=== PATIENT | male | born 1965 | race Caucasian/White ===

== ENCOUNTER 2023-07-21 17:38 | Emergency (ER) | payer OTHER, SELFPAY ==
[2023-07-21] VITALS (9 sets, daily range): BP systolic 130–166; BP diastolic 84–94; PULSE 60–64; RESP 10–20; TEMP 36.1; O2SAT 96–99; BMI 29.8
--- NOTE | 2023-07-21 17:44 | DI.RAD.S_ITS ---
PROCEDURE: XR CHEST 1V INDICATIONS: chest pain TECHNIQUE: One view of the chest was acquired. COMPARISON: None. FINDINGS: Surgical changes and devices: Midline sternotomy wire and heart valve prosthesis in place Lungs and pleura: Lungs are clear. No pleural effusions or pneumothorax. Mediastinum: Mediastinal contours appear normal. Heart size is normal. Bones and chest wall: No suspicious bony lesions. Overlying soft tissues appear unremarkable. IMPRESSION: No acute cardiopulmonary abnormality is seen. Dictated by: Ashley Pacheco M.D. on 07/21/2023 at 19:41 Approved by: Ashley Pacheco M.D. on 07/21/2023 at 19:41
--- NOTE | 2023-07-21 18:02 | PC.NURSE ---
Patient reports his watch has been stating he has been in afib about 2%of his day. States he started feeling off Like he had a bad run of afib Patient reports he goes in and out of afib, on coumadin. Denies chest pain at present but does report some mild SOB.
[2023-07-21 18:09] LABS: Add Manual Diff / Slide Review NO; Basophils Absolute Auto 100 /uL (0-100); Basophils Percent Auto 0.7 % (0-2); Eosinophils Absolute Auto 100 /uL (0-450); Eosinophils Percent Auto 0.9 % (2-4); Hemoglobin 15.2 g/dL (13.5-17.5); Lymphocytes Absolute Auto 2600 /uL (1100-4500); Lymphocytes Percent Auto 28.3 % (25-40); Mean Corpuscular HGB Conc 34.7 % (30-36); Mean Corpuscular Hemoglobin 30.5 PG (26-34); Monocytes Absolute Auto 800 /uL (0-900); Monocytes Percent Auto 9.3 % (3-14); Neutrophils Absolute Auto 5500 /uL (1500-7000); Neutrophils Percent Auto 60.8 % (50-75); Platelet Count 305 X10^3/uL (150-400); Red Cell Distribution Width 13.5 % (11.6-14.8); White Blood Cell Count 9.1 X10^3/uL (4.5-11.0)
--- NOTE | 2023-07-21 18:09 | DI.CT.S_ITS ---
PROCEDURE: CT HEAD/BRAIN WO CON INDICATIONS: confusion on thinners TECHNIQUE: Noncontrast 4.5 mm thick angled axial sections acquired from the foramen magnum to the vertex, with coronal and sagittal reformats. For radiation dose reduction, the following was used: automated exposure control, adjustment of mA and/or kV according to patient size. COMPARISON: [facility], CR, XR CHEST 1V, 07/21/2023, 17:50. FINDINGS: Image quality: Diagnostic. CSF spaces: Basal cisterns are patent. No extra-axial fluid collections. Ventricles are normal in size and shape. Brain: No midline shift. No intracranial masses or hemorrhage. Hand-white matter interface is normal. Skull and face: Calvarium and visualized facial bones are intact, without suspicious lesions. Sinuses: Visualized sinuses and mastoids are clear. IMPRESSION: No acute intracranial hemorrhage is seen. No acute intracranial process is seen. Dictated by: Shun Narvaez M.D. on 07/21/2023 at 18:09 Approved by: Shun Narvaez M.D. on 07/21/2023 at 18:10
[2023-07-21 18:16] LABS: INR 2.5 (0.9-1.3)
[2023-07-21 18:19] LABS: PTT Partial Thromboplastin Tim 45 SECONDS (25.1-36.5)
[2023-07-21 18:22] LABS: Alanine Aminotransferase 59 IU/L (<50); Albumin 4.6 g/dL (3.5-5.0); Albumin Globulin Ratio 1.3 (1.0-2.8); Alkaline Phosphatase 71 U/L (38-126); Aspartate Aminotransferase 43 IU/L (17-59); Bilirubin Total 0.8 mg/dL (0.2-1.3); Blood Urea Nitrogen 25 mg/dL (9-20); Calcium 9.9 mg/dL (8.4-10.2); Carbon Dioxide 29 mmol/L (22-32); Chloride 101 mmol/L (98-107); Creatine Kinase 119 U/L (55-170); Estimated Glomerular Filt Rate > 60 mL/min (>60); Globulin 3.5 g/dL (1.7-4.1); Glucose 93 mg/dL (70-100); HEMOLYSIS < 15 (0-50); Lipase 99 U/L (23-300); Magnesium 1.8 mg/dL (1.6-2.3); Sodium 137 mmol/L (137-145); Total Protein 8.1 g/dL (6.3-8.2)
[2023-07-21 18:33] LABS: Troponin I < 0.012 ng/mL (0.01-0.034)
[2023-07-21 18:40] LABS: Influenza A - CEPHEID Flu A NEGATIVE (NEGATIVE); Influenza B - CEPHEID Flu B NEGATIVE (NEGATIVE); Respiratory Syncytial Virus Negative (Negative)
[2023-07-21 18:57] LABS: COVID-19 CEPHEID 4-PLEX PCR Negative (Negative)
[2023-07-21] MEDS: ASPIRIN 81 MG CHEW TAB 324 MG PO (19:21)
--- NOTE | 2023-07-21 20:14 | ED.GENADULT ---
HPI - General Adult General Chief complaint: Altered Mental Status Stated complaint: not thinking right Time Seen by Provider: 07/21/23 18:03 Source: patient Mode of arrival: Ambulatory History of Present Illness HPI narrative: Patient is a 58-year-old male here for evaluation of multiple symptoms to include being dizzy, shaky, confusion, potential AFib, muscle twitching and shoulder pain. He states the symptoms came on rather suddenly while he was at work. He states he had a difficult time making it to the emergency department because of the confusion. He has had a aortic valve replacement. Is on Coumadin. Does have intermittent episodes with AFib. Denies chest pain. Denies headache. Has had issues with the aortic valve in the past and needed to be revised. He thought that the symptoms today were similar to that event. Related Data Home Medications Medication Instructions Recorded Confirmed levothyroxine 50 mcg tablet 50 mcg PO DAILY 07/21/23 07/21/23 metoprolol succinate 50 mg 50 mg PO BID 07/21/23 07/21/23 tablet,extended release 24 hr warfarin 5 mg tablet 7.5 mg PO DAILY 07/21/23 07/21/23 Allergies Allergy/AdvReac Type Severity Reaction Status Date / Time No Known Drug Allergies Allergy Verified 07/21/23 17:48 Review of Systems Constitutional Constitutional: Reports system reviewed and no additional complaints, except as documented Cardiovascular Cardiovascular: Reports system reviewed and no additional complaints, except as documented Respiratory Respiratory: Reports system reviewed and no additional complaints, except as documented Gastrointestinal Gastrointestinal: Reports system reviewed and no additional complaints, except as documented Genitourinary Genitourinary: Reports system reviewed and no additional complaints, except as documented Neurologic Neurologic: Reports system reviewed and no additional complaints, except as documented Hematologic/Lymphatic On Anticoagulants: Yes Patient History Social History Smoking Status: Former smoker Smoking Status: Former smoker alcohol intake frequency: other Substance Use Type: does not use Exam Initial Vital Signs Initial Vital Signs: Vital Signs Temperature 97 F L 07/21/23 17:45 Pulse Rate 64 07/21/23 17:45 Respiratory Rate 18 07/21/23 17:45 Blood Pressure 166/88 H 07/21/23 17:45 Pulse Oximetry 98 07/21/23 17:45 Oxygen Delivery Method Room Air 01/16/24 17:45 HENMT Head: normal to inspection and normocephalic Resp Effort & Inspection: normal respiratory effort Auscultation: clear to auscultation bilaterally Cardio Rate: regular rate Rhythm: regular rhythm Heart Sounds: murmur Skin General: no rashes or lesions noted Neuro General: patient alert, patient awake, patient oriented x3 and moves all extremities Cognition: normal cognition Speech: speech normal Gait: normal gait Extrem General: normal to inspection and capillary refill normal Scores GCS [place] coma scale eye opening: Spontaneous [place] coma scale verbal response: Orientated [place] coma scale motor response: Obey commands [place] coma scale total score: 15 Course Orders Ordered: ED Orders 07/21/23 17:44 XR chest 1V Stat EKG-12 Lead Stat 07/21/23 17:57 Complete Blood Count AUTO DIFF Stat Comprehensive Metabolic Panel Stat Lipase Stat Magnesium Stat PTT Partial Thromboplastin [place] Stat Prothrombin Time INR Stat Troponin & CK Cardiac Panel Stat 07/21/23 17:58 Covid-19 + FLU A/B + RSV - PCR Stat 07/21/23 18:09 CT head/brain wo con Stat Discontinued Medications Aspirin (Aspirin 81 Mg Chew Tab) 324 mg PO NOW ONE Stop: 07/21/23 17:45 Last Admin: 07/21/23 19:21 Dose: 324 mg Documented By: SB Vital Signs Vital signs: Vital Signs - 8 hr 07/21/23 17:45 07/21/23 17:56 07/21/23 18:00 Temperature 97 F L Pulse Rate 64 64 63 Respiratory Rate 18 14 10 L Blood Pressure 166/88 H Pulse Oximetry 98 98 Oxygen Delivery Method Room Air 07/21/23 18:00 07/21/23 18:26 07/21/23 18:26 Temperature Pulse Rate 60 Respiratory Rate 18 Blood Pressure 140/87 150/94 H Pulse Oximetry 96 Oxygen Delivery Method 07/21/23 18:30 07/21/23 18:30 07/21/23 19:00 Temperature Pulse Rate 61 61 Respiratory Rate 18 15 Blood Pressure 139/84 Pulse Oximetry 97 97 Oxygen Delivery Method 07/21/23 19:01 07/21/23 19:01 07/21/23 19:30 Temperature Pulse Rate 63 60 Respiratory Rate 16 15 Blood Pressure 147/84 H Pulse Oximetry 97 98 Oxygen Delivery Method 07/21/23 19:30 07/21/23 20:00 07/21/23 20:00 Temperature Pulse Rate 63 Respiratory Rate 20 Blood Pressure 130/84 154/86 H Pulse Oximetry 99 Oxygen Delivery Method Medical Decision Making Lab Data Lab results reviewed: Yes I reviewed the patient's lab results. 07/21/23 17:57 07/21/23 17:57 Labs: Lab Results 07/21/23 07/21/23 Range/Units 17:57 17:58 WBC 9.1 (4.5-11.0) X10^3/uL RBC 5.00 (4.5-5.9) X10^6/uL Hgb 15.2 (13.5-17.5) g/dL Hct 44.0 (41-53) % MCV 88.0 (80-100) fL MCH 30.5 (26-34) PG MCHC 34.7 (30-36) % RDW 13.5 (11.6-14.8) % Plt Count 305 (150-400) X10^3/uL Neut % (Auto) 60.8 (50-75) % Lymph % (Auto) 28.3 (25-40) % [place] % (Auto) 9.3 (3-14) % Eos % (Auto) 0.9 L (2-4) % Baso % (Auto) 0.7 (0-2) % Neut # (Auto) 5500 (1210-4527) /uL Lymph # (Auto) 2600 (4442-5034) /uL [place] # (Auto) 800 (0-900) /uL Eos # (Auto) 100 (0-450) /uL Baso # (Auto) 100 (0-100) /uL PT 29.0 H (9.4-12.5) SECONDS INR 2.5 H (0.9-1.3) APTT 45 H (25.1-36.5) SECONDS Sodium 137 (137-145) mmol/L Potassium 4.0 (3.4-5.1) mmol/L Chloride 101 (98-107) mmol/L Carbon Dioxide 29 (22-32) mmol/L BUN 25 H (9-20) mg/dL Creatinine 0.96 (0.66-1.25) mg/dL Estimated GFR > 60 (>60) mL/min BUN/Creatinine Ratio 26.0 H (6-22) Glucose 93 (70-100) mg/dL Calcium 9.9 (8.4-10.2) mg/dL Magnesium 1.8 (1.6-2.3) mg/dL Total Bilirubin 0.8 (0.2-1.3) mg/dL AST 43 (17-59) IU/L ALT 59 H (<50) IU/L Alkaline Phosphatase 71 (38-126) U/L Total Creatine Kinase 119 (55-170) U/L Troponin I < 0.012 (0.01-0.034) ng/mL Total Protein 8.1 (6.3-8.2) g/dL Albumin 4.6 (3.5-5.0) g/dL Globulin 3.5 (1.7-4.1) g/dL Albumin/Globulin Ratio 1.3 (1.0-2.8) Lipase 99 (23-300) U/L SARS-CoV-2 (PCR) Negative (Negative) Influenza A (RT-PCR) Flu a negative (NEGATIVE) Influenza B (RT-PCR) Flu b negative (NEGATIVE) RSV (PCR) Negative (Negative) Imaging Data Chest x-ray: Radiologist's Impression: PROCEDURE: XR CHEST 1V INDICATIONS: chest pain TECHNIQUE: One view of the chest was acquired. COMPARISON: None. FINDINGS: Surgical changes and devices: Midline sternotomy wire and heart valve prosthesis in place Lungs and pleura: Lungs are clear. No pleural effusions or pneumothorax. Mediastinum: Mediastinal contours appear normal. Heart size is normal. Bones and chest wall: No suspicious bony lesions. Overlying soft tissues appear unremarkable. IMPRESSION: No acute cardiopulmonary abnormality is seen. CT scan - head: Radiologist's Impression: PROCEDURE: CT HEAD/BRAIN WO CON INDICATIONS: confusion on thinners TECHNIQUE: Noncontrast 4.5 mm thick angled axial sections acquired from the foramen magnum to the vertex, with coronal and sagittal reformats. For radiation dose reduction, the following was used: automated exposure control, adjustment of mA and/or kV according to patient size. COMPARISON: [facility], , XR CHEST 1V, 07/21/2023, 17:50. FINDINGS: Image quality: Diagnostic. CSF spaces: Basal cisterns are patent. No extra-axial fluid collections. Ventricles are normal in size and shape. Brain: No midline shift. No intracranial masses or hemorrhage. Hand-white matter interface is normal. Skull and face: Calvarium and visualized facial bones are intact, without suspicious lesions. Sinuses: Visualized sinuses and mastoids are clear. IMPRESSION: No acute intracranial hemorrhage is seen. No acute intracranial process is seen. ECG Data Attestation: I personally reviewed and interpreted this ECG as follows: Interpretation: Sinus rhythm Ventricular rate is 65 Normal axis Normal QRS Normal QTC No ST T wave changes MDM Narrative Medical decision making narrative: Workup here in the emergency department is very reassuring. Head CT is unremarkable. His INR is 2.5. Labs are unremarkable. Low suspicion for ACS. Unfortunately I do not have echocardiogram capability right this moment. Recommended that he stay here in the emergency department this evening and we can get an echocardiogram in the morning to further evaluate his aortic valve. Patient states he was actually feeling much better and did not want to stay in the emergency department. Low suspicion for CVA. Patient is alert and oriented x3. GCS of 15. Will discharge patient home with instructions to contact his lead systems analyst tomorrow for follow-up. He was given strict return precautions. He expressed understanding and agreement with plan. Discharge Plan Departure Patient Disposition: Home Clinical Impression: Dizziness Instructions: DI for Dizziness-Nonvertigo Activity Restrictions/Additional Instructions: Recommend that you continue to take all of your medications as directed. Your INR today is 2.5. I recommend that you contact your lead systems analyst tomorrow for a follow-up. Return to the emergency department for new or worsening symptoms. Prescriptions: No Action warfarin 5 mg tablet 7.5 mg PO DAILY metoprolol succinate 50 mg tablet extended release 24 hr 50 mg PO BID levothyroxine 50 mcg tablet 50 mcg PO DAILY Stand Alone Forms: Patient Portal/API
== END 2023-07-21 20:26 | disposition home or self-care (01) ==
PROVIDERS: Emergency Medicine; Emergency Provider Emergency Medicine
DX: R42 Dizziness and giddiness (principal); R07.9 Chest pain, unspecified; R41.0 Disorientation, unspecified; Z95.2 Presence of prosthetic heart valve; Z79.01 Long term (current) use of anticoagulants; Z20.822 Contact with and (suspected) exposure to COVID-19
CPT/HCPCS: 0241U; 36415; 70450; 71045; 80053; 82550; 83690; 83735; 84484; 85025; 85610; 85730; 93005; 93010; 99284; 99285